=== PATIENT | female | born 1995 | race Two or more races ===

== ENCOUNTER 2020-10-18 07:10 | Inpatient (IN) | payer OTHER ==
[2020-10-18 08:35] VITALS: BMI 39.8
[2020-10-18 09:51] LABS: INR 0.99 (0.83-1.09)
[2020-10-18 09:52] LABS: BASO % 0.4 % (0-2.0); EOS % 0.7 % (0-4.5); HEMATOCRIT 32.9 % (32.4-45.2); LYMPH % 26.4 % (8-40); MCH 26.5 pg (25.7-33.7); MCHC 33.4 g/dl (32.0-36.0); MEAN CELL VOLUME 79.3 fl (80-96); MEAN PLT VOLUME 8.1 fl (7.5-11.1); MONO % 8.2 % (3.8-10.2); NEUT % 64.3 % (42.8-82.8); PLATELET COUNT 260 K/MM3 (134-434); RBC 4.14 M/mm3 (3.60-5.2); RDW 15.8 % (11.6-15.6); WHITE BLOOD COUNT 6.8 K/mm3 (4.0-10.0)
[2020-10-18 09:54] LABS: ACTIVATED PTT 27.9 SECONDS (25.2-36.5)
[2020-10-18 10:16] LABS: POTASSIUM 3.8 mmol/L (3.5-5.1)
[2020-10-18 10:18] LABS: BLOOD UREA NITROGEN 13.2 mg/dL (7-18); CALCIUM 8.2 mg/dL (8.5-10.1)
[2020-10-18 10:22] LABS: CREATININE 0.6 mg/dL (0.55-1.3)
[2020-10-18] MEDS ORDERED: PROMETHAZINE HCL 25 MG/1 ML VIAL IVPB ONE (10:44)
[2020-10-18] MEDS ORDERED: BUTORPHANOL TARTRATE 2 MG/ML VIAL IVPB PRN (10:44)
[2020-10-18] MEDS ORDERED: DINOPROSTONE 10 MG VAGINAL SUPPOSITORY VG ONE (10:45)
[2020-10-18] MEDS: ELECTROLYTE-148 SOLN 1,000 ML IV SCH (11:47)
[2020-10-19] MEDS ORDERED: OXYTOCIN 30 UNITS in 0.9% NS 30 UNIT/500 ML INFUS.BAG IVPB SCH
[2020-10-19] MEDS ORDERED: OXYTOCIN 30 UNITS in 0.9% NS 30 UNIT/500 ML INFUS.BAG IVPB ONE (01:29)
[2020-10-19] MEDS: ELECTROLYTE-148 SOLN 1,000 ML IV SCH (10:45)
[2020-10-19] MEDS ORDERED: BENZOCAINE 20% 57 GM BOTTLE TP PRN (11:16)
[2020-10-19] MEDS ORDERED: diphenhydrAMINE HCL 25 MG CAPSULE (FP) PO PRN (11:16)
[2020-10-19] MEDS ORDERED: WITCH HAZEL 50% (TUCKS) 40 PAD/JAR PAD TP PRN (11:16)
[2020-10-19] MEDS ORDERED: BENZOCAINE 28 GM HEMORRHOIDAL OINTMENT RC PRN (11:16)
[2020-10-19] MEDS ORDERED: METHYLERGONOVINE MALEATE 0.2 MG/1 ML AMP IM PRN (11:16)
[2020-10-19] MEDS ORDERED: IBUPROFEN 800 MG/8 ML IJ IVPB PRN (11:16)
[2020-10-19] MEDS ORDERED: CITRIC ACID/SODIUM CITRATE 30 ML UNIT-DOSE CUP PO ONE (12:50)
[2020-10-19] MEDS ORDERED: ONDANSETRON 4 MG/2 ML VIAL IVPUSH PRN (12:54)
[2020-10-19] MEDS ORDERED: morphine SULFATE/PF 0.5 MG/ML (2cc Syringe - QUVA) SPIN ONE (12:54)
[2020-10-19] MEDS ORDERED: OXYTOCIN 20 UNITS in 0.9% NS 20 UNIT/1,000 ML INFUS.BAG IV SCH (13:15)
[2020-10-19] MEDS ORDERED: OXYTOCIN 20 UNITS in 0.9% NS 20 UNIT/1,000 ML INFUS.BAG IV ONE (13:17)
[2020-10-19] MEDS ORDERED: morphine SULFATE/PF 0.5 MG/ML (2cc Syringe - QUVA) ONE (13:18)
[2020-10-19] MEDS ORDERED: ePHEDrine SULFATE 50 MG/1 ML AMPULE ONE (13:19)
[2020-10-19 15:37] LABS: CORD BASE EXCESS -4.1 mmol/L (0-2); CORD HCO3 22.5 mmHg (20-29); CORD PCO2 46.7 mmHg (30-78); CORD pH 7.301 (7.14-7.44)
[2020-10-19 15:41] LABS: CORD BASE EXCESS -2.5 mmol/L (0-2); CORD HCO3 23.1 mmHg (20-29); CORD PCO2 43.1 mmHg (30-78); CORD pH 7.347 (7.14-7.44)
[2020-10-19] MEDS ORDERED: IBUPROFEN 800 MG/8 ML IJ IVPB ONE (15:48)
[2020-10-20] MEDS: ACETAMINOPHEN 325 MG TABLET (FP) PO PRN ×2 (06:01→16:44)
[2020-10-20] MEDS: IBUPROFEN 600 MG TABLET (FP) PO PRN ×2 (06:02→16:44)
[2020-10-20 09:30] LABS: HEMATOCRIT 31.4 % (32.4-45.2); HEMOGLOBIN 10.4 GM/dL (10.7-15.3); MCH 26.5 pg (25.7-33.7); MCHC 33.3 g/dl (32.0-36.0); MEAN CELL VOLUME 79.6 fl (80-96); MEAN PLT VOLUME 8.5 fl (7.5-11.1); PLATELET COUNT 227 K/MM3 (134-434); RBC 3.94 M/mm3 (3.60-5.2); RDW 15.4 % (11.6-15.6); WHITE BLOOD COUNT 8.1 K/mm3 (4.0-10.0)
[2020-10-20] MEDS ORDERED: BISACODYL 10 MG SUPP.RECT PR PRN (11:16)
[2020-10-20] MEDS ORDERED: oxyCODONE HCL 5 MG TABLET PO PRN ×2 (11:16)
[2020-10-21] MEDS: IBUPROFEN 600 MG TABLET (FP) PO PRN ×3 (00:37→18:34)
[2020-10-21] MEDS: ACETAMINOPHEN 325 MG TABLET (FP) PO PRN ×3 (00:37→18:34)
[2020-10-21] MEDS: SIMETHICONE 80 MG TAB.CHEW (FP) PO PRN ×3 (00:37→18:34)
[2020-10-21] MEDS ORDERED: SENNOSIDES/DOCUSATE COMBO (SENNA PLUS) TABLET (UD) PO PRN (22:00)
[2020-10-22] MEDS: IBUPROFEN 600 MG TABLET (FP) PO PRN ×2 (00:59→08:27)
[2020-10-22] MEDS: ACETAMINOPHEN 325 MG TABLET (FP) PO PRN ×2 (00:59→08:26)
[2020-10-22] MEDS: SIMETHICONE 80 MG TAB.CHEW (FP) PO PRN ×2 (01:00→08:28)
[2020-10-22 08:47] LABS: HEMOGLOBIN 10.1 GM/dL (10.7-15.3); MCH 25.9 pg (25.7-33.7); MCHC 32.6 g/dl (32.0-36.0); MEAN CELL VOLUME 79.5 fl (80-96); MEAN PLT VOLUME 8.4 fl (7.5-11.1); PLATELET COUNT 240 K/MM3 (134-434); RDW 15.5 % (11.6-15.6); WHITE BLOOD COUNT 8.5 K/mm3 (4.0-10.0)
[2020-10-22 09:07] VITALS: BP 106/71; PULSE 71; TEMP 98.1
== END 2020-10-22 13:15 | disposition home or self-care (01) | DRG 540 ==
LOC: JLDR 07:10 → J3W 10-19 16:30
PROVIDERS: ADMIT Obstetrics & Gynecology; ATTEND Obstetrics & Gynecology
PROC: 3E0P7VZ Introduction of Hormone into Female Reproductive, Via Natural or Artificial Opening (ICD-10-PCS; 2020-10-18)
PROC: 10D00Z1 Extraction of Products of Conception, Low, Open Approach (ICD-10-PCS; principal; 2020-10-19)
PROC: 3E033VJ Introduction of Other Hormone into Peripheral Vein, Percutaneous Approach (ICD-10-PCS; 2020-10-19)
DX: O36.63X0 Maternal care for excessive fetal growth, third trimester, not applicable or unspecified (principal); O40.3XX0 Polyhydramnios, third trimester, not applicable or unspecified; O62.0 Primary inadequate contractions; O61.0 Failed medical induction of labor; O69.81X0 Labor and delivery complicated by cord around neck, without compression, not applicable or unspecified; Z3A.39 39 weeks gestation of pregnancy; Z37.0 Single live birth
CPT/HCPCS: 36415; 36600; 80048; 82803; 85025; 85027; 85610; 85730; 86780; 86850; 86900; 86901; 87340; 88307-TC

== ENCOUNTER 2021-07-13 01:55 | Emergency (ER) | payer OTHER ==
[2021-07-13 02:16] VITALS: BP 115/76; PULSE 82; TEMP 98.3; BMI 33.7
[2021-07-13] MEDS ORDERED: KETOROLAC TROMETHAMINE 30 MG/1 ML VIAL IM ONE (02:30)
[2021-07-13] MEDS ORDERED: MAG HYDROX/ALH/SMC/DPHA/LIDO 240 ML MOUTHWASH MM SCH ×3 (02:35→06:00)
[2021-07-13] MEDS ORDERED: KETOROLAC TROMETHAMINE 30 MG/1 ML VIAL ONE (02:37)
== END 2021-07-13 03:24 | disposition home or self-care (01) ==
LOC: JER 01:55
PROC: 3E0233Z Introduction of Anti-inflammatory into Muscle, Percutaneous Approach (ICD-10-PCS; principal; 2021-07-13)
DX: H60.311 Diffuse otitis externa, right ear (principal); B97.11 Coxsackievirus as the cause of diseases classified elsewhere
CPT/HCPCS: 99283-25

== ENCOUNTER 2023-05-08 10:00 | Inpatient (IN) | payer OTHER ==
[2023-05-14] MEDS: ELECTROLYTE-148 SOLN 1,000 ML IV SCH (13:00)
[2023-05-14 13:42] LABS: BASO % 0.3 % (0-2.0); EOS % 1.6 % (0-4.5); HEMATOCRIT 30.8 % (32.4-45.2); LYMPH % 23.7 % (8-40); MCH 25.7 pg (25.7-33.7); MCHC 32.5 g/dl (32.0-36.0); MEAN CELL VOLUME 78.8 fl (80-96); MEAN PLT VOLUME 8.3 fl (7.5-11.1); MONO % 6.7 % (3.8-10.2); NEUT % 67.7 % (42.8-82.8); PLATELET COUNT 236 10^3/uL (134-434); RBC 3.91 M/mm3 (3.60-5.2); RDW 14.4 % (11.6-15.6); WHITE BLOOD COUNT 7.9 K/mm3 (4.0-10.0)
[2023-05-14 13:43] VITALS: BMI 37.1
[2023-05-14] MEDS ORDERED: LIGASURE IMPACT TP ONE (13:52)
[2023-05-14 13:55] LABS: INR 0.99 (0.83-1.09); PROTHROMBIN TIME (PATIENT) 11.5 SEC (9.7-13.0)
[2023-05-14 13:57] LABS: ACTIVATED PTT 26.7 SECONDS (25.2-36.5)
[2023-05-14] MEDS ORDERED: CITRIC ACID/SODIUM CITRATE 30 ML UNIT-DOSE CUP PO ONE (14:00)
[2023-05-14 14:21] LABS: POTASSIUM 4.1 mmol/L (3.5-5.1)
[2023-05-14 14:23] LABS: CALCIUM 7.9 mg/dL (8.5-10.1)
[2023-05-14 14:24] LABS: BLOOD UREA NITROGEN 12.9 mg/dL (7-18)
[2023-05-14 14:27] LABS: CREATININE 0.5 mg/dL (0.55-1.3)
[2023-05-14] MEDS ORDERED: morphine SULFATE/PF 1 MG/2 ML (2cc Syringe - QUVA) ONE (15:03)
[2023-05-14] MEDS ORDERED: PHENYLEPHRINE HCL 10 MG/1 ML SINGLE DOSE VIAL ONE (15:03)
[2023-05-14 15:14] LABS: HIV INTERPRETATION NEGATIVE (NEGATIVE)
[2023-05-14] MEDS ORDERED: IBUPROFEN 800 MG/8 ML IJ IVPB PRN (15:15)
[2023-05-14] MEDS ORDERED: BENZOCAINE 28 GM HEMORRHOIDAL OINTMENT TP PRN (15:15)
[2023-05-14] MEDS ORDERED: ACETAMINOPHEN 325 MG TABLET (FP) PO PRN (15:15)
[2023-05-14] MEDS ORDERED: BENZOCAINE 20% 57 GM BOTTLE TP PRN (15:15)
[2023-05-14] MEDS ORDERED: WITCH HAZEL 50% (TUCKS) 40 PAD/JAR PAD TP PRN (15:15)
[2023-05-14] MEDS ORDERED: METHYLERGONOVINE MALEATE 0.2 MG/1 ML AMP IM PRN (15:15)
[2023-05-14] MEDS ORDERED: SODIUM CHLORIDE 0.9% P/F 10 ML VIAL IJ ONE (15:26)
[2023-05-14] MEDS ORDERED: OXYTOCIN 10 UNITS/ML VIAL ONE (15:26)
[2023-05-14 16:45] LABS: CORD BASE EXCESS -3.7 mmol/L (0-2); CORD HCO3 22.4 mmHg (20-29); CORD PCO2 43.9 mmHg (30-78); CORD pH 7.325 (7.14-7.44)
[2023-05-14] MEDS: OXYTOCIN 20 UNITS in 0.9% NS 20 UNIT/1,000 ML INFUS.BAG IV SCH (16:45)
[2023-05-14] MEDS ORDERED: OXYTOCIN 20 UNITS in 0.9% NS 20 UNIT/1,000 ML INFUS.BAG IV ONE (16:59)
[2023-05-14] MEDS: FERROUS SO4 325 MG TABLET (FP) PO SCH (21:24)
[2023-05-15] MEDS: OXYTOCIN 20 UNITS in 0.9% NS 20 UNIT/1,000 ML INFUS.BAG IV SCH ×2 (01:45→15:55)
[2023-05-15] MEDS ORDERED: oxyCODONE HCL 5 MG TABLET PO PRN ×2 (03:15)
[2023-05-15 08:41] VITALS: RESP 18
[2023-05-15 08:49] LABS: BASO % 0.1 % (0-2.0); EOS % 0.5 % (0-4.5); HEMATOCRIT 29.6 % (32.4-45.2); HEMOGLOBIN 9.9 GM/dL (10.7-15.3); LYMPH % 19.4 % (8-40); MCH 26.2 pg (25.7-33.7); MCHC 33.5 g/dl (32.0-36.0); MEAN CELL VOLUME 78.2 fl (80-96); MEAN PLT VOLUME 8.9 fl (7.5-11.1); MONO % 7.4 % (3.8-10.2); NEUT % 72.6 % (42.8-82.8); PLATELET COUNT 212 10^3/uL (134-434); RBC 3.79 M/mm3 (3.60-5.2); RDW 14.1 % (11.6-15.6)
[2023-05-15] MEDS: PRENATAL VITAMINS W/ FOLIC ACID TABLET (FP) PO SCH (10:27)
[2023-05-15] MEDS: FERROUS SO4 325 MG TABLET (FP) PO SCH ×2 (10:27→22:01)
[2023-05-15] MEDS ORDERED: BISACODYL 10 MG SUPP.RECT RC PRN (15:15)
[2023-05-15] MEDS: ELECTROLYTE-148 SOLN 1,000 ML IV SCH (15:55)
[2023-05-15] MEDS: IBUPROFEN 600 MG TABLET (FP) PO PRN ×2 (17:50→22:01)
[2023-05-15] MEDS: SIMETHICONE 80 MG TAB.CHEW (FP) PO PRN ×2 (17:50→22:01)
[2023-05-16] MEDS: PRENATAL VITAMINS W/ FOLIC ACID TABLET (FP) PO SCH (09:29)
[2023-05-16] MEDS: FERROUS SO4 325 MG TABLET (FP) PO SCH (09:29)
[2023-05-16] MEDS: IBUPROFEN 600 MG TABLET (FP) PO PRN (09:29)
[2023-05-16 11:54] VITALS: BP 99/65; PULSE 70; TEMP 98
== END 2023-05-16 17:30 | disposition home or self-care (01) | DRG 785 ==
LOC: JLDR 05-14 12:30 → J3W 05-14 17:20
PROVIDERS: ADMIT Obstetrics & Gynecology; ATTEND Obstetrics & Gynecology
PROC: 10D00Z1 Extraction of Products of Conception, Low, Open Approach (ICD-10-PCS; principal; 2023-05-14)
PROC: 0UT70ZZ Resection of Bilateral Fallopian Tubes, Open Approach (ICD-10-PCS; 2023-05-14)
DX: O48.0 Post-term pregnancy (principal); Z37.0 Single live birth; Z3A.40 40 weeks gestation of pregnancy; O34.219 Maternal care for unspecified type scar from previous cesarean delivery; Z30.2 Encounter for sterilization
CPT/HCPCS: 36415; 36600; 80048; 82803; 85025; 85610; 85730; 86780; 86803; 86850; 86900; 86901; 87389; 88302-TC; 88307-TC; 94010